=== PATIENT | male | born 1990 | race Caucasian/White ===

== ENCOUNTER 2021-11-30 14:09 | Emergency (ER) | payer OTHER, SELFPAY ==
[2021-11-30 14:51] VITALS: BP 133/85; PULSE 60; RESP 18; TEMP 36.3; O2SAT 99
--- NOTE | 2021-11-30 15:24 | ED.MALEGU ---
HPI - Male Genitourinary General Chief complaint: Urogenital-Male Stated complaint: abdomen pain Time Seen by Provider: 11/30/21 15:10 Source: patient and RN notes reviewed Mode of arrival: ambulatory Limitations: no limitations History of Present Illness HPI Narrative: 31-year-old male presented for complaint of clear penile discharge for 3 years, and chronic right sided abdominal pain for 5 years. Also endorses loose stool x5 days. He states his recently had similar symptoms, was checked for UTI and STDs and was told to be checked as well. He states spouse was negative for urinary tract infection but does not yet have the STD results. He denies concern for STD at this time. Denies dysuria, hematuria, hematospermia, nausea, vomiting, fevers or chills. Related Data Home Medications Medication Instructions Recorded Confirmed Celebrex 11/30/21 Allergies Allergy/AdvReac Type Severity Reaction Status Date / Time No Known Allergies Allergy Verified 11/30/21 15:25 Review of Systems Review of Systems: CONSTITUTIONAL: Denies body aches, fever, chills, or sweats. CARDIOVASCULAR: Denies chest pain, palpitations, or edema. RESPIRATORY: Denies cough or dyspnea. GASTROINTESTINAL: Denies nausea, vomiting GENITOURINARY: Denies dysuria, urgency, hematuria, flank pain SKIN: Denies rash, itching, or wounds. MUSCULOSKELETAL: Denies myalgia. PMFSH Comments At time of signature, I have reviewed and agree with nursing past medical, surgical, social and family history unless otherwise noted. Please see nursing chart for further information. There is no relevant family history pertinent to the presenting complaint Exam Narrative: GENERAL: Well-appearing and in no acute distress. HEAD: Normocephalic EYES: EOMI. . ENT: Mucous membranes pink and moist. NECK: Normal AROM. Supple. CHEST: No respiratory distress. Clear to auscultation. HEART: Regular rate and rhythm. ABDOMEN: Soft, Tender with deep palpation to RLQ and right mid abd. nondistended, normal active bowel sounds. No CVA tenderness MUSCULOSKELETAL: No bony tenderness. SKIN: Warm, dry, no rash. NEURO: No focal deficits. Alert and oriented x3. Gait steady. PSYCH: Normal affect. No signs of depression or anxiety. Course Course Emergency Course: Patient is aware of diagnosis, understands and agrees to treatment plan. Anticipatory guidance given. Patient agrees to follow-up as directed and is aware of reasons to seek care at the emergency department. Portions of this record may have been created with voice recognition software Level of Care: Express Care Visit Vital Signs Vital signs: Vital Signs Temperature 97.3 F L 11/30/21 14:51 Pulse Rate 60 11/30/21 14:51 Respiratory Rate 18 11/30/21 14:51 Blood Pressure 133/85 11/30/21 14:51 Pulse Oximetry 99 11/30/21 14:51 Temperature 97.3 F L 11/30/21 14:51 Pulse Rate 60 11/30/21 14:51 Respiratory Rate 18 11/30/21 14:51 Blood Pressure 133/85 11/30/21 14:51 Pulse Oximetry 99 11/30/21 14:51 Reviewed MDM - Male Genitourinary MDM Narrative Medical decision making narrative: Exam findings and UA show no acute concerns; patient is non-toxic appearing and is in no distress. Endorses chronic right sided low back pain, right abdominal pain, chronic urinary frequency and chronic clear penile drainage. He denies any new urinary complaints. He is advised on supportive measures for acute diarrhea. Urine specimen collected for GC, chlamydia, trich. Informed Pt will be contacted w/ results when they become available if they are positive. Discussed with patient that it takes up to 7 days for results of cultures to be released; since he has no concern for STD he will wait to be treated only if indicated. I have instructed the patient to return to the ER at any time if there are any new or worsening symptoms. The patient expressed understanding of and agreement with this plan. Zoey
== END 2021-11-30 15:35 | disposition home or self-care (01) ==
PROVIDERS: Emergency Provider Nurse Practitioner Family; PCP Family Medicine
DX: R10.11 Right upper quadrant pain (principal); R19.7 Diarrhea, unspecified
CPT/HCPCS: 81003; 87491; 87591; 87661; 99203; G0463

== ENCOUNTER 2023-01-21 08:30 | Outpatient (RCR) | payer OTHER, SELFPAY ==
--- NOTE | 2022-12-24 10:23 | OTOPEVAL1 ---
Assessment and note entered by BRITNEY Evans/Renetta, CHT Evaluation Information Assessment Status Evaluation Diagnosis Left thumb fracture Onset ~11/05/22, Surgery 11/16/22 Subjective Information Patient presents today in a prefabricated removable hand based thumb spica splint. He wears this for heavier tasks, but takes it off for light tasks around the house. He is right hand dominant. Reported Pain Level Pain Score 1: Self Report Assessment OT Clinical Summary Patient referred to outpatient hand therapy with weakness and stiffness after undergoing an ORIF of the left thumb's proximal phalanx. Skilled OT indicated for use of modalities, manual therapy techniques, HEP instruction and progression, functional therapeutic exercise, and progression to strengthening to facilitate optimal functional use of the left hand. May utilize static progressive splinting to the thumb's IP depending on progress. Plan of Care Interventions Therapeutic Exercise,Manual Therapy,Therapeutic Activities,Hot Pack/Cold Pack,Check Out for Orthotic/Pr,Paraffin OT Services Indicated Yes Treatment Frequency and 1x/week for 4 weeks Duration These treatments will address the objective and functional deficits as defined above. The patient will be advanced safely and appropriately in order for the patient to progress towards his/her prior level of function. Additional exercises will be introduced and as well as a comprehensive home exercise program upon discharge, if needed, ?to ensure carryover of functional gains achieved in the clinic. This treatment plan has been reviewed and agreement upon by the patient.
--- NOTE | 2022-12-24 10:24 | OPREHPOC ---
Outpatient Therapy Plan of Care This is a Multidisciplinary Plan of Care that may contain components documented by all disciplines (PT, OT, and ST.) OT Problem 1 OT Problem #1 Knowledge Deficit OT Goal 1 Goal 1. Patient to be independent with instructed materials. Target Visit 4 OT Problem 2 OT Problem #2 Pain OT Goal 1 Goal 1. Patient to be independent with non-medication pain management. Target Visit 4 OT Problem 3 OT Problem #3 Impaired Range of Motion OT Goal 1 Goal 1. Patient to be able to touch the tip of the left thumb to the base of the left small finger. Target Visit 4 OT Problem 4 OT Problem #4 Impaired Strength OT Goal 1 Goal 1. Patient to be able to complete pole shaver helper/pinch strengthening HEP with at least red theraputty x5 minutes. Target Visit 4
--- NOTE | 2023-01-21 09:09 | OTOPDC ---
Assessment and note entered by BRTINEY Evans/Renetta, CHT Assessment Status Discharge Diagnosis Left thumb fracture Onset ~11/05/22, Surgery 11/16/22 Subjective Information Patient presents today reporting good functional return of the thumb. States he has been using his hand normally. Reporting some residual tightness in the thumb IP joint. Reports his strength is improving. Overall he is happy with his progress. Functional ROM has improved to functional limits. Left thumb IP flexion improved from 15 degrees to 45 degrees. He is now able to touch the base of digit V. 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 Assessment OT Clinical Summary Patient referred to outpatient hand therapy with weakness and stiffness after undergoing an ORIF of the left thumb's proximal phalanx. He has made excellent progress with therapy. He is now using his hand/thumb without restriction and is reporting no functional deficits at this time. No further skilled OT indicated at this time. Plan of Care OT Services Indicated No
== END 2023-01-23 09:24 | disposition home or self-care (01) ==
LOC: ANHOT 08:30
PROVIDERS: PCP Nurse Practitioner Family; Visit Provider Nurse Practitioner Family
DX: S62.509D Fracture of unspecified phalanx of unspecified thumb, subsequent encounter for fracture with routine healing (principal)
CPT/HCPCS: 97018; 97110; 97140; 97165